=== PATIENT | male | born 1960 | race Caucasian/White ===

== ENCOUNTER 2016-11-18 00:02 | Emergency (ER) | payer OTHER ==
[2016-11-18 00:39] VITALS: BP 160/119
== END 2016-11-18 00:30 | disposition left against medical advice (07) ==
LOC: ED 00:02
DX: H54.61 Unqualified visual loss, right eye, normal vision left eye (principal); I10 Essential (primary) hypertension; Z88.1 Allergy status to other antibiotic agents